=== PATIENT | female | born 2000 | race Caucasian/White ===

== ENCOUNTER → 2023-07-18 10:20 | Outpatient (REF) | payer BC, SELFPAY ==
[2023-07-18 13:12] LABS: % Basophils 0.6 % (0-2); % Immature Granulocytes 0.3 % (0-0.5); % Lymphocytes 22.2 % (20.5-51.1); % Monocytes 7.3 % (1.7-9.3); % Neutrophils 67.6 % (42.2-75.2); Absolute Basophils 0.1 10^3/uL (0-0.2); Absolute Eosinophils 0.2 10^3/uL (0-0.7); Absolute Lymphocytes 2.3 10^3/uL (1.2-3.4); Absolute Monocytes 0.8 10^3/uL (0.1-0.6); Absolute Neutrophils 6.9 10^3/uL (1.4-6.5); Hematocrit 37.3 % (37.0-47.0); Hemoglobin 12.1 g/dL (12.0-16.0); Mean Corp Hgb Conc. 32.4 g/dL (33.0-37.0); Mean Corpuscular Hgb 28.9 pg (27.0-31.0); Mean Corpuscular Volume 89.2 fL (81.0-99.0); Mean Platelet Volume 9.7 fL (7.4-10.4); Nucleated Red Blood Cells % 0 %; Platelet Count 401 10^3/uL (130-400); Red Blood Cell Count 4.18 10^6/uL (4.20-5.40); Red Cell Dist. Width 13.6 % (11.5-14.5); White Blood Cell Count 10.3 10^3/uL (4.8-10.8)
[2023-07-18 13:28] LABS: ALT (SGPT) 20 U/L (0-35); AST (SGOT) 29 U/L (14-36); Albumin 4.4 g/dl (3.5-5.0); Alkaline Phosphatase 76 U/L (38-126); Blood Urea Nitrogen 12 mg/dl (7-17); Calcium 9.9 mg/dl (8.4-10.2); Carbon Dioxide 24 mmol/L (22-30); Chloride 106 mmol/L (98-107); Glucose 82 mg/dl (70-99); Potassium 4.3 mmol/L (3.5-5.1); Sodium 136 mmol/L (135-145); Total Bilirubin 0.6 mg/dl (0.2-1.3); Total Cholesterol 208 mg/dl (50-199); Total Protein 7.4 g/dl (6.3-8.2); Triglyceride 115 mg/dl (10-149); Very Low Density Lipoprotein 23 mg/dl (0-30); eGFR > 60.00
[2023-07-18 13:38] LABS: HDL Cholesterol 115 mg/dl; LDL Cholesterol, Calculated 70 mg/dl
[2023-07-18 13:55] LABS: TSH Reflex To Free T4 1.76 uIU/ml (0.47-4.68)
== END ==
LOC: HWLAB 10:20
PROVIDERS: ATTENDING PHYSICIAN Nurse Practitioner Family
DX: Z00.00 Encounter for general adult medical examination without abnormal findings (principal); J02.0 Streptococcal pharyngitis; F41.9 Anxiety disorder, unspecified
CPT/HCPCS: 36415; 80053; 80061; 84443; 85025

== ENCOUNTER → 2023-12-22 13:39 | Outpatient (REF) | payer BC, SELFPAY | LOC: HWRAD 13:39 | PROVIDERS: ATTENDING PHYSICIAN Internal Medicine; FAMILY PHYSICIAN Nurse Practitioner Family | DX: R07.81 Pleurodynia (principal); M25.512 Pain in left shoulder | CPT/HCPCS: 71110; 73010 ==

== ENCOUNTER → 2024-04-23 12:46 | Outpatient (REF) | payer BC, SELFPAY ==
[2024-04-23 16:01] LABS: HCG, Urine Qualitative Screen Negative
[2024-04-23 16:09] LABS: Hemoglobin 12.6 g/dL (12.0-16.0); Mean Corp Hgb Conc. 33.2 g/dL (33.0-37.0); Mean Corpuscular Hgb 29.1 pg (27.0-31.0); Mean Corpuscular Volume 87.8 fL (81.0-99.0); Mean Platelet Volume 10.3 fL (7.4-10.4); Platelet Count 320 10^3/uL (130-400); Red Blood Cell Count 4.33 10^6/uL (4.20-5.40); Red Cell Dist. Width 12.5 % (11.5-14.5); White Blood Cell Count 8.9 10^3/uL (4.8-10.8)
== END ==
LOC: HWLAB 12:46
PROVIDERS: ATTENDING PHYSICIAN Otolaryngology; FAMILY PHYSICIAN Nurse Practitioner Family
DX: J35.01 Chronic tonsillitis (principal)
CPT/HCPCS: 36415; 81025; 85027

== ENCOUNTER → 2024-07-02 09:26 | Outpatient (REF) | payer BC, SELFPAY ==
[2024-07-02 12:03] LABS: % Basophils 0.6 % (0-2); % Eosinophils 2.1 % (0-6); % Immature Granulocytes 0.3 % (0-0.5); % Lymphocytes 31.6 % (20.5-51.1); % Monocytes 7.9 % (1.7-9.3); % Neutrophils 57.5 % (42.2-75.2); Absolute Eosinophils 0.1 10^3/uL (0-0.7); Absolute Lymphocytes 2.1 10^3/uL (1.2-3.4); Absolute Monocytes 0.5 10^3/uL (0.1-0.6); Absolute Neutrophils 3.8 10^3/uL (1.4-6.5); Hemoglobin 12.2 g/dL (12.0-16.0); Mean Corpuscular Hgb 29.5 pg (27.0-31.0); Mean Corpuscular Volume 89.4 fL (81.0-99.0); Mean Platelet Volume 9.9 fL (7.4-10.4); Nucleated Red Blood Cells % 0 %; Platelet Count 282 10^3/uL (130-400); Red Blood Cell Count 4.14 10^6/uL (4.20-5.40); Red Cell Dist. Width 12.3 % (11.5-14.5); White Blood Cell Count 6.6 10^3/uL (4.8-10.8)
[2024-07-02 12:30] LABS: ALT (SGPT) 12 U/L (0-35); AST (SGOT) 21 U/L (14-36); Albumin 4.4 g/dl (3.5-5.0); Alkaline Phosphatase 61 U/L (38-126); Blood Urea Nitrogen 13 mg/dl (7-17); Calcium 9.8 mg/dl (8.4-10.2); Carbon Dioxide 23 mmol/L (22-30); Chloride 104 mmol/L (98-107); Glucose 79 mg/dl (70-99); Potassium 4.4 mmol/L (3.5-5.1); Sodium 135 mmol/L (135-145); Total Bilirubin 0.5 mg/dl (0.2-1.3); Total Protein 7.2 g/dl (6.3-8.2); eGFR > 60.00
[2024-07-02 12:53] LABS: TSH Reflex To Free T4 1.97 uIU/ml (0.47-4.68)
== END ==
LOC: HWLAB 09:26
PROVIDERS: ATTENDING PHYSICIAN Nurse Practitioner Family
DX: R19.7 Diarrhea, unspecified (principal)
CPT/HCPCS: 36415; 80053; 84443; 85025

== ENCOUNTER → 2024-10-29 11:07 | Outpatient (REF) | payer BC, SELFPAY | LOC: HWLAB 11:07 | PROVIDERS: ATTENDING PHYSICIAN Internal Medicine Gastroenterology; FAMILY PHYSICIAN Nurse Practitioner Family | DX: R19.4 Change in bowel habit (principal) | CPT/HCPCS: 74018; 82272; 82653; 82705; 83993; 87045; 87046; 87427; 89055 ==

== ENCOUNTER → 2025-01-19 09:51 | Outpatient (REF) | payer BC, SELFPAY ==
[2025-01-20 11:43] LABS: Mumps Virus IgG Positive; Varicella Zoster IgG (VZV) Positive
== END ==
LOC: HWLAB 09:51
PROVIDERS: ATTENDING PHYSICIAN Nurse Practitioner Family
DX: Z02.1 Encounter for pre-employment examination (principal)
CPT/HCPCS: 36415; 86480; 86706; 86735; 86762; 86765; 86787

== ENCOUNTER → 2025-03-22 12:27 | Outpatient (REF) | payer BC, SELFPAY ==
[2025-03-22 16:04] LABS: Hematocrit 37.6 % (37.0-47.0); Hemoglobin 12.6 g/dL (12.0-16.0); Mean Corp Hgb Conc. 33.5 g/dL (33.0-37.0); Mean Corpuscular Volume 85.6 fL (81.0-99.0); Nucleated Red Blood Cells % 0 %; Platelet Count 317 10^3/uL (130-400); Red Cell Dist. Width 12.2 % (11.5-14.5)
[2025-03-22 16:06] LABS: Urine Character Clear (Clear)
[2025-03-22 16:10] LABS: ALT (SGPT) 15 U/L (0-35); AST (SGOT) 21 U/L (14-36); Albumin 4.7 g/dl (3.5-5.0); Alkaline Phosphatase 61 U/L (38-126); Blood Urea Nitrogen 14 mg/dl (7-17); Calcium 9.9 mg/dl (8.4-10.2); Carbon Dioxide 21 mmol/L (22-30); Chloride 108 mmol/L (98-107); Glucose 112 mg/dl (70-99); Iron 87 ug/dl (37-170); Potassium 4.1 mmol/L (3.5-5.1); Sodium 137 mmol/L (135-145); Total Protein 7.7 g/dl (6.3-8.2); eGFR > 60.00
[2025-03-22 16:12] LABS: C-Reactive Protein < 5.00 mg/L (0.0-10.00)
[2025-03-22 16:48] LABS: Ferritin 15.5 ng/ml (6.24-137)
[2025-03-22 17:03] LABS: Vitamin B12 269 pg/ml (239-931)
[2025-03-24 14:01] LABS: Lyme Antibody Screen, EIA Negative (Negative)
[2025-03-24 15:19] LABS: Rheumatoid Agglutinin Less Than 10 IU (<10 IU)
[2025-03-25 00:34] LABS: EBV-EA (D) Ab IgG <5.0 U/mL (<=8.9); EBV-NA IgG 51.0 U/mL (<=17.9); EBV-VCA IgG Antibodies 595.0 U/mL (<=17.9); EBV-VCA IgM Antibodies <10.0 U/mL (<=35.9)
[2025-03-25 01:19] LABS: CCP Antibody IgG/IgA 3 Units (0-19)
[2025-03-25 01:32] LABS: ANA, IgG Reflex to HEp-2 None Detected (None Detected)
== END ==
LOC: HWLAB 12:27
PROVIDERS: ATTENDING PHYSICIAN Nurse Practitioner Family
DX: R53.81 Other malaise (principal); R42 Dizziness and giddiness; M79.10 Myalgia, unspecified site; R53.83 Other fatigue; R68.83 Chills (without fever); M54.50 Low back pain, unspecified
CPT/HCPCS: 36415; 71046; 72110; 80053; 81003; 82607; 82728; 83540; 84443; 85025; 85652; 86038; 86140; 86200; 86308; 86430; 86618; 86645; 86663; 86664; 86665

== ENCOUNTER → 2025-04-01 11:51 | Outpatient (REF) | payer BC, SELFPAY | LOC: HWLAB 11:51 | PROVIDERS: ATTENDING PHYSICIAN Nurse Practitioner Family | DX: Z02.1 Encounter for pre-employment examination (principal) | CPT/HCPCS: 86706 ==